=== PATIENT | male | born 2005 | race African-American/Black ===

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

== ENCOUNTER 2025-05-03 10:31 | Emergency (ER) | payer OTHER, SELFPAY ==
[2025-05-03] MEDS ORDERED: Lidocaine 1% PF 5 ML VIAL ONE (11:38)
[2025-05-03] MEDS ORDERED: Sulfameth/Trimethoprim DS 800-160mg TAB ONE (11:53)
== END 2025-05-03 12:00 | disposition home or self-care (01) ==
LOC: ERS 10:31
DX: L02.01 Cutaneous abscess of face (principal)